=== PATIENT | male | born 1975 | race Caucasian/White ===

== ENCOUNTER 2024-09-28 04:20 | Inpatient (IN) | payer BC ==
[2024-09-28] MEDS ORDERED: Acetaminophen 325 MG TAB PO PRN (07:00)
[2024-09-28 07:33] LABS: Hematocrit 53.4 % (42.0-52.0); Hemoglobin 17.1 g/dL (14.0-18.0); Mean Corpuscular Hemoglobin 31.5 pg (27.0-31.0); Mean Corpuscular Volume 98.5 fL (78.0-98.0); Mean Platelet Volume 10.7 fL (7.4-10.4); Platelet Count 118 10x3/uL (130-400); Red Blood Cell (RBC) Count 5.42 mill/uL (4.70-6.10)
[2024-09-28] MEDS ORDERED: Albuterol 2.5 MG (3 mL) NEB NEB PRN (07:38)
[2024-09-28 07:48] LABS: Lactic Acid 2.42 mmol/L (0.50-2.20)
[2024-09-28 07:53] LABS: INR-International Normal Ratio 1.7; Prothrombin Time 20.3 sec (12.0-14.7)
[2024-09-28 08:04] LABS: Troponin I 0.098 ng/mL (< 0.028)
[2024-09-28 08:08] LABS: Band 3 % (5-11); Lymphocytes 18 % (21-51); Macrocytosis SLIGHT = 6-15 cells HPF (0-5); Monocytes 1 % (0-10); Neutrophil 78 % (42-75); Ovalocytes SLIGHT = 2-5 cells HPF (0-1); Platelet Adequacy Comment Platelets Decreased; Polychromasia SLIGHT = 2-3 cells HPF (0-2)
[2024-09-28 08:15] LABS: Acetaminophen Less than 10 mcg/mL (Less than 10); Alcohol Less than 10.0 mg/dL (Less than 10); Salicylate Less than 8.0 mg/dL (Less than 8.0)
[2024-09-28 08:16] LABS: ALT (SGPT) 1118 U/L (Less than 45); AST (SGOT) 1121 U/L (11-34); Albumin 3.1 g/dL (3.1-4.5); Alkaline Phosphatase 75 U/L (40-110); Anion Gap 17 mmol/L (10-20); BUN (Urea Nitrogen) 32 mg/dL (8.9-20.6); Bilirubin, Total 2.7 mg/dL (0.3-1.2); Calc. Creatinine Clearance 95 mL/min (70-130); Calcium 8.1 mg/dL (7.8-10.44); Carbon Dioxide 15 mmol/L (22-29); Chloride 102 mmol/L (98-107); Estimated GFR 69; Glucose 95 mg/dL (70-105); Potassium 5.1 mmol/L (3.5-5.1); Protein, Total 6.1 g/dL (6.0-8.3); Sodium 129 mmol/L (136-145)
[2024-09-28 09:15] LABS: Alcohol Less than 10.0 mg/dL (Less than 10); Salicylate Less than 8.0 mg/dL (Less than 8.0)
[2024-09-28] MEDS: Benzonatate 100 MG CAP PO SCH (09:20)
[2024-09-28] MEDS: Sodium Chloride 0.9% 1,000 ML IV SCH (09:23)
[2024-09-28 09:27] LABS: Troponin I 0.107 ng/mL (< 0.028)
[2024-09-28] MEDS: Albumin 25% 25 GM (100 mL) BOT IVPB SCH (14:22)
[2024-09-28 16:38] LABS: Lactic Acid 3.38 mmol/L (0.50-2.20)
[2024-09-28] MEDS: Doxycycline 100 MG in Sodium Chloride 0.9% 100 ML IVPB SCH (22:14)
[2024-09-28] MEDS: Ketorolac Tromethamine 30 MG (1 mL) VIAL IVP SCH (22:18)
[2024-09-28] MEDS: Lidocaine 4% Patch TD SCH (23:13)
[2024-09-28 23:28] LABS: Legionella Urinary Ag Negative (Negative); Strep pneumo Urine Ag NEGATIVE (NEGATIVE)
[2024-09-29 00:36] VITALS: BMI 27.0
[2024-09-29 05:35] LABS: #Basophils 0.06 10x3/uL (0.0-0.2); #Eosinophils Less than 0.03 10x3/uL (0.0-0.7); %Basophils 0.5 % (0.0-1.0); %Eosinophils 0.2 % (0.0-10.0); %Lymphocytes 27.2 % (21.0-51.0); %Monocytes 8.3 % (0.0-10.0); %Neutrophils 63.2 % (42.0-75.0); Hematocrit 51.9 % (42.0-52.0); Hemoglobin 16.5 g/dL (14.0-18.0); Mean Corpuscular HGB CONC 31.8 g/dL (32.0-36.0); Mean Corpuscular Hemoglobin 31.1 pg (27.0-31.0); Mean Corpuscular Volume 97.7 fL (78.0-98.0); Mean Platelet Volume 10.8 fL (7.4-10.4); Platelet Count 149 10x3/uL (130-400); RBC Distribution Width 13.2 % (11.5-14.5); Red Blood Cell (RBC) Count 5.31 mill/uL (4.70-6.10)
[2024-09-29 06:30] LABS: ALT (SGPT) 951 U/L (Less than 45); AST (SGOT) 680 U/L (11-34); Albumin 3.7 g/dL (3.1-4.5); Alkaline Phosphatase 77 U/L (40-110); Anion Gap 21 mmol/L (10-20); BUN (Urea Nitrogen) 32 mg/dL (8.9-20.6); Bilirubin, Total 2.8 mg/dL (0.3-1.2); Calc. Creatinine Clearance 84 mL/min (70-130); Calcium 8.5 mg/dL (7.8-10.44); Carbon Dioxide 13 mmol/L (22-29); Chloride 102 mmol/L (98-107); Estimated GFR 60; Globulin 3.2 g/dL (2.4-3.5); Glucose 69 mg/dL (70-105); HIV (1/2) Antibody/Antigen NONREACTIVE (NonReactive); HIV 1/2 INDEX 0.04 S/CO (<1.00); Hep A IgM AB NONREACTIVE (NonReactive); Hep A IgM S/CO 0.23 S/CO (0-0.79); Hep B Core IgM Index 0.07 S/CO (0-0.79); Hep B Surf Ag NONREACTIVE S/CO (NonReactive); Hep C IgG Ab NONREACTIVE S/CO (NonReactive); Hepatitis B Core IgM Abs NONREACTIVE S/CO (NonReactive); Potassium 4.7 mmol/L (3.5-5.1); Protein, Total 6.9 g/dL (6.0-8.3); Sodium 131 mmol/L (136-145)
[2024-09-29 08:54] LABS: Lactic Acid 2.11 mmol/L (0.50-2.20)
[2024-09-29] MEDS: Sodium Chloride 0.9% 1,000 ML IV SCH (09:07)
[2024-09-29] MEDS: Aspirin 81 mg Enteric Coated Tablet PO SCH (09:07)
[2024-09-29] MEDS: Sodium Bicarb 50 MEQ/50 ML Abboject 8.4% SYRINGE IVP SCH (09:08)
[2024-09-29] MEDS: Albumin 25% 25 GM (100 mL) BOT IVPB SCH (12:54)
[2024-09-29] MEDS: Transdermal Patch Removal TOP SCH (12:54)
[2024-09-29] MEDS: Furosemide 40 MG (4 mL) VIAL SLOW IVP SCH (15:51)
[2024-09-29] MEDS: Enoxaparin 100 MG (1 mL) SYRINGE SC SCH (15:51)
[2024-09-29] MEDS: Sodium Bicarbonate Tab 325 MG TAB PO SCH (15:51)
[2024-09-29] MEDS: Carvedilol 3.125 MG TAB PO SCH (17:56)
[2024-09-29] MEDS: Lidocaine 4% Patch TD SCH (20:44)
[2024-09-29] MEDS: Lorazepam 2 MG/ML VIAL SLOW IVP SCH (21:51)
[2024-09-30 04:44] LABS: #Basophils 0.03 10x3/uL (0.0-0.2); #Eosinophils Less than 0.03 10x3/uL (0.0-0.7); %Basophils 0.2 % (0.0-1.0); %Lymphocytes 13.5 % (21.0-51.0); %Monocytes 9.9 % (0.0-10.0); %Neutrophils 75.3 % (42.0-75.0); Hematocrit 49.2 % (42.0-52.0); Hemoglobin 15.8 g/dL (14.0-18.0); Mean Corpuscular HGB CONC 32.1 g/dL (32.0-36.0); Mean Corpuscular Hemoglobin 31.5 pg (27.0-31.0); Mean Corpuscular Volume 98.2 fL (78.0-98.0); Platelet Count 184 10x3/uL (130-400); RBC Distribution Width 13.5 % (11.5-14.5); Red Blood Cell (RBC) Count 5.01 mill/uL (4.70-6.10)
[2024-09-30 04:53] LABS: Hemoglobin A1c 5.4 % (4.0-6.0)
[2024-09-30 05:05] LABS: CRP,High Sensitivity (Inhouse) 7.55 mg/dL (< or = 0.5)
[2024-09-30] MEDS: Enoxaparin 100 MG (1 mL) SYRINGE SC SCH (05:09)
[2024-09-30] MEDS: Furosemide 40 MG (4 mL) VIAL SLOW IVP SCH (05:10)
[2024-09-30 07:02] LABS: ALT (SGPT) 843 U/L (Less than 45); AST (SGOT) 861 U/L (11-34); Albumin 4.2 g/dL (3.1-4.5); Anion Gap 30 mmol/L (10-20); BUN (Urea Nitrogen) 43 mg/dL (8.9-20.6); CK (CPK) 731 U/L (30-200); Calc. Creatinine Clearance 80 mL/min (70-130); Calcium 8.6 mg/dL (7.8-10.44); Carbon Dioxide 13 mmol/L (22-29); Chloride 97 mmol/L (98-107); Estimated GFR 52; Globulin 2.4 g/dL (2.4-3.5); Glucose 30 mg/dL (70-105); Magnesium 2.4 mg/dL (1.6-2.6); Protein, Total 6.6 g/dL (6.0-8.3); Sodium 134 mmol/L (136-145)
[2024-09-30 07:18] LABS: Alkaline Phosphatase 80 U/L (40-110)
[2024-09-30] MEDS: Spironolactone 25 MG TAB PO SCH (08:40)
[2024-09-30] MEDS: Doxycycline 100 MG CAP PO SCH (08:41)
[2024-09-30] MEDS: Empagliflozin 10 MG TAB PO SCH (08:41)
[2024-09-30] MEDS: Transdermal Patch Removal TOP SCH (08:43)
[2024-09-30] MEDS: Albuterol 2.5 MG (3 mL) NEB NEB SCH (12:30)
[2024-09-30] MEDS: Metolazone 2.5 MG TAB PO SCH (12:47)
[2024-09-30] MEDS: Sodium Polystyrene Sulfonate 15 GM (60 mL) BOT PO SCH (13:01)
[2024-09-30] MEDS: Insulin Regular, Human 100 UNIT/ML 10 ML VIAL IVP SCH (13:02)
[2024-09-30] MEDS: Dextrose 50% Abboject 50 ML SYRINGE SLOW IVP SCH (13:03)
[2024-09-30] MEDS: DOBUTamine 500 mg/250 ml 250 ML IVPB SCH (13:19)
[2024-09-30 16:43] LABS: ALT (SGPT) 1298 U/L (Less than 45); AST (SGOT) 2296 U/L (11-34); Albumin 4.1 g/dL (3.1-4.5); Alkaline Phosphatase 76 U/L (40-110); Anion Gap 19 mmol/L (10-20); BUN (Urea Nitrogen) 44 mg/dL (8.9-20.6); Bilirubin, Total 4.5 mg/dL (0.3-1.2); Calc. Creatinine Clearance 82 mL/min (70-130); Calcium 8.4 mg/dL (7.8-10.44); Carbon Dioxide 22 mmol/L (22-29); Chloride 98 mmol/L (98-107); Estimated GFR 55; Globulin 2.2 g/dL (2.4-3.5); Glucose 82 mg/dL (70-105); Potassium 4.5 mmol/L (3.5-5.1); Protein, Total 6.3 g/dL (6.0-8.3); Sodium 134 mmol/L (136-145)
[2024-10-01 07:52] LABS: #Basophils Less than 0.03 10x3/uL (0.0-0.2); #Eosinophils Less than 0.03 10x3/uL (0.0-0.7); %Basophils 0.2 % (0.0-1.0); %Eosinophils 0.1 % (0.0-10.0); %Lymphocytes 21.8 % (21.0-51.0); %Monocytes 5.1 % (0.0-10.0); %Neutrophils 72.4 % (42.0-75.0); Hematocrit 46.4 % (42.0-52.0); Hemoglobin 15.7 g/dL (14.0-18.0); Mean Corpuscular HGB CONC 33.8 g/dL (32.0-36.0); Mean Corpuscular Hemoglobin 31.7 pg (27.0-31.0); Mean Corpuscular Volume 93.5 fL (78.0-98.0); Mean Platelet Volume 10.8 fL (7.4-10.4); Platelet Count 148 10x3/uL (130-400); Red Blood Cell (RBC) Count 4.96 mill/uL (4.70-6.10)
[2024-10-01 08:17] LABS: Anion Gap 16 mmol/L (10-20); BUN (Urea Nitrogen) 41 mg/dL (8.9-20.6); Calc. Creatinine Clearance 96 mL/min (70-130); Calcium 8.5 mg/dL (7.8-10.44); Carbon Dioxide 29 mmol/L (22-29); Chloride 94 mmol/L (98-107); Estimated GFR 69; Glucose 117 mg/dL (70-105); Potassium 3.3 mmol/L (3.5-5.1); Sodium 136 mmol/L (136-145)
[2024-10-01] MEDS: guaiFENesin/Codeine 200 mg/20 mg 10 ml Cup PO SCH (22:26)
[2024-10-01] MEDS: Benzocaine/Menthol 1 LOZ LOZ PO PRN (22:26)
[2024-10-02 04:00] LABS: #Basophils 0.03 10x3/uL (0.0-0.2); %Basophils 0.4 % (0.0-1.0); %Eosinophils 0.6 % (0.0-10.0); %Monocytes 7.2 % (0.0-10.0); %Neutrophils 70.3 % (42.0-75.0); Hematocrit 43.7 % (42.0-52.0); Hemoglobin 14.9 g/dL (14.0-18.0); Mean Corpuscular HGB CONC 34.1 g/dL (32.0-36.0); Mean Corpuscular Hemoglobin 31.8 pg (27.0-31.0); Mean Corpuscular Volume 93.4 fL (78.0-98.0); Mean Platelet Volume 10.9 fL (7.4-10.4); Platelet Count 149 10x3/uL (130-400); RBC Distribution Width 13.7 % (11.5-14.5); Red Blood Cell (RBC) Count 4.68 mill/uL (4.70-6.10)
[2024-10-02 04:37] LABS: Anion Gap 14 mmol/L (10-20); BUN (Urea Nitrogen) 33 mg/dL (8.9-20.6); Calc. Creatinine Clearance 103 mL/min (70-130); Calcium 8.6 mg/dL (7.8-10.44); Carbon Dioxide 31 mmol/L (22-29); Chloride 93 mmol/L (98-107); Estimated GFR 75; Glucose 101 mg/dL (70-105); Potassium 3.3 mmol/L (3.5-5.1); Sodium 135 mmol/L (136-145)
[2024-10-02 07:20] LABS: ALT (SGPT) 1012 U/L (Less than 45); AST (SGOT) 1009 U/L (11-34)
[2024-10-02] MEDS: Potassium Bicarbonate/Cit Ac 20 MEQ TAB PO SCH (09:45)
[2024-10-02 21:36] LABS: Mycoplasma pneumoniae IgG AB 844 U/mL (0-99); Mycoplasma pneumoniae IgM AB Less than 770 U/mL (0-769)
[2024-10-03] MEDS: Enoxaparin 100 MG (1 mL) SYRINGE SC SCH (03:53)
[2024-10-03 04:36] LABS: #Basophils 0.04 10x3/uL (0.0-0.2); %Basophils 0.5 % (0.0-1.0); %Eosinophils 1.3 % (0.0-10.0); %Lymphocytes 22.4 % (21.0-51.0); %Neutrophils 66.4 % (42.0-75.0); Hematocrit 47.2 % (42.0-52.0); Hemoglobin 15.6 g/dL (14.0-18.0); Mean Corpuscular HGB CONC 33.1 g/dL (32.0-36.0); Mean Corpuscular Hemoglobin 31.3 pg (27.0-31.0); Mean Corpuscular Volume 94.6 fL (78.0-98.0); Mean Platelet Volume 10.7 fL (7.4-10.4); Platelet Count 168 10x3/uL (130-400); RBC Distribution Width 13.8 % (11.5-14.5); Red Blood Cell (RBC) Count 4.99 mill/uL (4.70-6.10)
[2024-10-03 04:55] LABS: ALT (SGPT) 802 U/L (Less than 45); AST (SGOT) 657 U/L (11-34); Albumin 3.7 g/dL (3.1-4.5); Alkaline Phosphatase 88 U/L (40-110); Anion Gap 15 mmol/L (10-20); BUN (Urea Nitrogen) 29 mg/dL (8.9-20.6); Bilirubin, Direct 1.4 mg/dL (0.1-0.3); Bilirubin, Total 2.9 mg/dL (0.3-1.2); Calc. Creatinine Clearance 119 mL/min (70-130); Calcium 9.4 mg/dL (7.8-10.44); Carbon Dioxide 28 mmol/L (22-29); Chloride 97 mmol/L (98-107); Estimated GFR 93; Glucose 93 mg/dL (70-105); Potassium 3.6 mmol/L (3.5-5.1); Protein, Total 6.5 g/dL (6.0-8.3); Sodium 136 mmol/L (136-145)
[2024-10-03 15:05] VITALS: BP 114/76; TEMP 98.1
[2024-10-03] MEDS: Apixaban 5 MG TAB PO SCH (16:48)
== END 2024-10-03 17:58 | disposition home or self-care (01) | DRG 193 ==
LOC: PCU 04:20
PROVIDERS: ADMIT Internal Medicine; ATTEND Internal Medicine
DX: J12.9 Viral pneumonia, unspecified (principal); I50.21 Acute systolic (congestive) heart failure; J96.01 Acute respiratory failure with hypoxia; K72.00 Acute and subacute hepatic failure without coma; A70 Chlamydia psittaci infections; I42.0 Dilated cardiomyopathy; J44.0 Chronic obstructive pulmonary disease with (acute) lower respiratory infection; I51.3 Intracardiac thrombosis, not elsewhere classified; F19.10 Other psychoactive substance abuse, uncomplicated; R74.01 Elevation of levels of liver transaminase levels; R79.89 Other specified abnormal findings of blood chemistry; Z88.8 Allergy status to other drugs, medicaments and biological substances; Z71.51 Drug abuse counseling and surveillance of drug abuser; F17.210 Nicotine dependence, cigarettes, uncomplicated
CPT/HCPCS: 36415; 36416; 71046; 80048; 80053; 80061; 80074; 80076; 80179; 80307; 82533; 82550; 83036; 83605; 83735; 83880; 84145; 84443; 84450; 84460; 85025; 85610; 86141; 87040; 87070; 87205; 87389; 87449; 87633; 87899; 93306; 93798; 94640; 94760; J1250; J1650; J1815; J1885; J1940; J2060; J7611; J7999; P9047